=== PATIENT | male | born 1975 | race Caucasian/White ===

== ENCOUNTER → 2018-09-29 | Outpatient (CLI) | payer OTHER ==
--- NOTE | 2018-09-29 14:35 | Diagnostic Imaging Report ---
INDICATION: Sudden onset of foot pain one day earlier. TECHNIQUE: Three views of the left foot. CORRELATION STUDY: None. FINDINGS: There is somewhat of a pes cavus alignment. Alignment is otherwise anatomic. Mildly prominent bone-like spur projection off the lateral first metatarsal head present. Joint space otherwise mildly narrowed. Mildly prominent but otherwise unremarkable appearing bony protuberance of the distal phalanx of the great toe. There is a prominent plantar calcaneal spur, approximately 6 mm in length. Soft tissues appearing unremarkable. IMPRESSION: 1. Negative for acute findings of the foot. Mild degenerative change of the first MTP joint. 2. Prominent plantar calcaneal spur. Dictated by: Dictated on workstation # [id number]
== END ==
LOC: RAD 12:39
PROVIDERS: ATTEND Physician Assistant
DX: M19.072 Primary osteoarthritis, left ankle and foot (principal); M77.32 Calcaneal spur, left foot
CPT/HCPCS: 73630

== ENCOUNTER 2019-04-06 12:52 | Outpatient (CLI) | payer OTHER | END 2019-04-06 13:28 | disposition home or self-care (01) | LOC: SLEEP 12:52 | PROVIDERS: ATTEND Otolaryngology Otolaryngology/Facial Plastic Surgery | DX: G47.10 Hypersomnia, unspecified (principal) ==

== ENCOUNTER → 2019-10-23 | Outpatient (CLI) | payer OTHER ==
[2019-10-23 11:49] LABS: HEMOGLOBIN 14.7 G/DL (13.3-17.7); MEAN PLATELET VOLUME 10.5 FL (7.4-10.4); RED CELL DISTRIBUTION WIDTH 12.1 % (10.0-14.5); WHITE BLOOD COUNT 5.9 10^3/uL (4.3-11.0)
--- NOTE | 2019-10-23 12:05 | Diagnostic Imaging Report ---
EXAMINATION: Left knee radiographs, 3 views. COMPARISON: None. HISTORY: 44-year-old male, left knee pain and swelling. FINDINGS: There is no left knee joint effusion. There is mild degenerative type enthesopathy at the distal quadriceps tendon insertion. The joint spaces are well preserved. There is no identified acute fracture. IMPRESSION: Unremarkable radiographs of the left knee. Dictated by: Dictated on workstation # [id number]
[2019-10-23 12:06] LABS: ALBUMIN 4.4 GM/DL (3.2-4.5); CHLORIDE 106 MMOL/L (98-107); SODIUM 140 MMOL/L (135-145)
[2019-10-23 12:08] LABS: CALCIUM 9.5 MG/DL (8.5-10.1)
[2019-10-23 12:09] LABS: GLUCOSE 98 MG/DL (70-105); TOTAL PROTEIN 7.3 GM/DL (6.4-8.2)
[2019-10-23 12:10] LABS: CARBON DIOXIDE 25 MMOL/L (21-32)
[2019-10-23 12:11] LABS: BILIRUBIN,TOTAL 0.5 MG/DL (0.1-1.0)
[2019-10-23 12:12] LABS: ALKALINE PHOSPHATASE 69 U/L (40-136)
[2019-10-23 12:13] LABS: CREATININE SERUM 1.03 MG/DL (0.60-1.30); GFR ESTIMATED > 60
[2019-10-23 12:14] LABS: BUN/CREATININE RATIO 9
[2019-10-23 12:15] LABS: ALANINE AMINOTRANSFERASE 21 U/L (0-55); URIC ACID 6.9 MG/DL (2.6-7.2)
== END ==
LOC: RAD 11:22
PROVIDERS: ATTEND Physician Assistant
DX: M25.462 Effusion, left knee (principal)
CPT/HCPCS: 36415; 73562; 80053; 84550; 85027; 85652; 86141

== ENCOUNTER → 2019-10-27 | Outpatient (CLI) | payer OTHER ==
--- NOTE | 2019-10-27 12:45 | Diagnostic Imaging Report ---
PROCEDURE: MRI left joint lower extremity without contrast. TECHNIQUE: Multiplanar, multisequence non contrast-enhanced MRI of the left lower extremity was accomplished. INDICATION: Knee pain. There are no prior MRI examinations available for comparison. FINDINGS: The plain film examination of the left knee performed on 10/23/2019 failed to show any sign of an acute abnormality. On the sagittal proton dense fat saturated series, there is an irregular band of increased signal extending obliquely through the inferior articular surface of the posterior horn of the medial meniscus. This would be consistent with a tear. There may also be a small tear along the midportion of the free edge of the meniscus. The lateral meniscus is intact. The anterior and posterior cruciate ligaments and the infrapatellar tendon appear to be intact. There is a small 5 x 12 mm collection of fluid amidst the fibers of the quadriceps tendon near its insertion into the superior pole of patella. This could be a sequela of a partial tear of the quadriceps. For the most part, however, the quadriceps appears to be intact. The collateral ligaments, the biceps femoris tendon and iliotibial band in the medial and lateral retinaculum show no sign of an acute injury. There is no abnormal signal arising from the osseous structures to suggest bone edema or fracture. The knee joint itself is fairly well-maintained. There is a moderate joint effusion present. There is no evidence for Haley's cyst. IMPRESSION: 1. The posterior horn of the medial meniscus is torn. There also appears to be a small tear along the free edge of the midportion of the medial meniscus. The lateral meniscus is intact. 2. The small collection of fluid amidst fibers of the attachment of the quadriceps tendon to the patella may be a sequela of prior partial tear of the quadriceps tendon. For the most part, the quadriceps tendon seems to be intact. 3. The other major ligaments and tendons show no sign of an acute injury. 4. There is no acute bony abnormality noted and the knee joint itself is fairly well-maintained. 5. There is a moderate joint effusion present. Dictated by: Dictated on workstation # [id number]
== END ==
LOC: RAD 10:28
PROVIDERS: ATTEND Physician Assistant
DX: S83.242A Other tear of medial meniscus, current injury, left knee, initial encounter (principal); M25.462 Effusion, left knee
CPT/HCPCS: 73721

== ENCOUNTER → 2020-01-01 | Outpatient (CLI) | payer OTHER ==
--- NOTE | 2020-01-01 10:20 | Diagnostic Imaging Report ---
PROCEDURE: MRI lumbar spine. TECHNIQUE: Multiplanar, multisequence MRI of the lumbar spine was performed without contrast. INDICATION: Knee pain. FINDINGS: The alignment of the lumbar spine is normal. The vertebral body heights are well-maintained. There is no spondylolysis or spondylolisthesis. No fractures are identified. There are no marrow signal intensity abnormalities. Conus medullaris is seen at L1 is normal in appearance. There is some mild lower lumbar hypertrophic degenerative facet disease. There is no focal disc extrusion or high-grade spinal stenosis. There is some mild bilateral neural foraminal encroachment at L4-L5 and L5-S1. The aorta is nonaneurysmal. Kidneys are normal in appearance. IMPRESSION: Mild lower lumbar hypertrophic degenerative facet disease resulting in some minimal bilateral neural foraminal encroachment at L4-L5 and L5-S1. No focal disc extrusion or high-grade spinal stenosis. Dictated by: Dictated on workstation # [id number]
== END ==
LOC: RAD 08:00
PROVIDERS: ATTEND Orthopaedic Surgery
DX: M47.26 Other spondylosis with radiculopathy, lumbar region (principal)
CPT/HCPCS: 72148

== ENCOUNTER → 2021-12-02 | Outpatient (CLI) | payer OTHER | LOC: CARD 11:00 | PROVIDERS: ATTEND Physician Assistant | DX: Z13.6 Encounter for screening for cardiovascular disorders (principal); I51.7 Cardiomegaly; Z82.49 Family history of ischemic heart disease and other diseases of the circulatory system | CPT/HCPCS: 93005 ==

== ENCOUNTER → 2021-12-05 | Outpatient (CLI) | payer OTHER | LOC: CARD 13:21 | PROVIDERS: ATTEND Physician Assistant | DX: Z13.6 Encounter for screening for cardiovascular disorders (principal) | CPT/HCPCS: 93306 ==

== ENCOUNTER → 2022-02-25 | Outpatient (CLI) | payer OTHER ==
--- NOTE | 2022-02-25 16:52 | Diagnostic Imaging Report ---
INDICATION: Knee pain. COMPARISON: None. FINDINGS: Three views of the right knee joint demonstrate no acute fracture or dislocation. No focal osseous lesions are seen. No significant joint effusion is seen. The surrounding soft tissue structures are unremarkable. There are no radiopaque foreign bodies. IMPRESSION: No acute fractures or dislocations of the right knee joint. Dictated by: Dictated on workstation # [id number]
== END ==
LOC: RAD 16:10
PROVIDERS: ATTEND Nurse Practitioner Family
DX: M25.561 Pain in right knee (principal)
CPT/HCPCS: 73562